=== PATIENT | male | born 1965 | race American Indian/Alaskan Native ===

== ENCOUNTER 2019-02-20 08:37 | Day surgery (SDC) | payer BC ==
--- NOTE | 2019-02-20 08:50 | CP.SDSHP ---
Same Day Surgery H & P - History Proposed Procedure: colonoscopy - Date & Time Date: 02/20/19 Time: 08:50 Short Stay Discharge - Short Stay Discharge Admitting Diagnosis/Reason for Visit: SCREENING, BLOOD IN STOOL Disposition: HOME/ ROUTINE
--- NOTE | 2019-02-20 08:53 | CP.SDSHP ---
Same Day Surgery H & P - History Proposed Procedure: colonoscopy - Date & Time Date: 02/20/19 Time: 08:52 Short Stay Discharge - Short Stay Discharge Admitting Diagnosis/Reason for Visit: SCREENING, BLOOD IN STOOL Disposition: HOME/ ROUTINE
[2019-02-20 09:11] VITALS: BMI 31.8
[2019-02-20] MEDS ORDERED: Propofol 10 mg/ml Inj (20 ML) ONE (10:17)
[2019-02-20] MEDS ORDERED: Lactated Ringer's 500 ML IV ONE ×2 (10:23)
[2019-02-20 11:54] VITALS: BP 124/88; PULSE 66; RESP 16; TEMP 98; O2SAT 98
== END 2019-02-20 11:45 | disposition home or self-care (01) ==
LOC: C.ENDO 08:37
PROVIDERS: ATTEND Colon & Rectal Surgery
DX: Z12.11 Encounter for screening for malignant neoplasm of colon (principal); K92.1 Melena; D12.2 Benign neoplasm of ascending colon
CPT/HCPCS: 45380; 88305; J2704; J7120